=== PATIENT | female | born 1975 | race Caucasian/White ===

== ENCOUNTER 2019-10-18 01:32 | Emergency (ER) | payer OTHER ==
[2019-10-18 02:18] LABS: ABSOLUTE EOSINOPHILS # (AUTO) 0.1 10^3/uL (0.0-0.6); ABSOLUTE MONOCYTES (AUTO) 0.5 10^3/uL (0.1-1.4); ABSOLUTE NEUT (AUTO) 6.9 10^3/uL (1.7-8.2); BASOPHILS % (AUTO) 0.4 % (0-2); EOSINOPHILS % (AUTO) 0.7 % (0-6); HEMATOCRIT 37.9 % (36.0-47.0); HEMOGLOBIN 13.4 g/dL (12.0-15.5); MEAN CORPUSCULAR HEMOGLOBIN 31.4 pg (27.0-33.4); MEAN CORPUSCULAR HGB CONC 35.3 g/dL (32.0-36.0); MEAN CORPUSCULAR VOLUME 89 fl (80-97); MONOCYTES % (AUTO) 5.2 % (3-13); PLATELET COUNT 255 10^3/uL (150-450); RED BLOOD COUNT 4.26 10^6/uL (3.72-5.28); RED CELL DISTRIBUTION WIDTH 13.3 % (11.5-14.0); SEGMENTED NEUTROPHILS % (AUTO) 72.7 % (42-78); TOTAL CELLS COUNTED % (AUTO) 100 %; WHITE BLOOD COUNT 9.5 10^3/uL (4.0-10.5)
[2019-10-18 02:35] LABS: ALBUMIN 4.4 g/dL (3.5-5.0); ALKALINE PHOSPHATASE 53 U/L (38-126); ANION GAP 9 (5-19); ASPARTATE AMINO TRANSFERASE 20 U/L (14-36); BILIRUBIN,TOTAL 0.5 mg/dL (0.2-1.3); BLOOD UREA NITROGEN 10 mg/dL (7-20); CALCIUM 9.3 mg/dL (8.4-10.2); CARBON DIOXIDE 24 mmol/L (22-30); CHLORIDE 106 mmol/L (98-107); GLUCOSE 117 mg/dL (75-110); POTASSIUM 3.5 mmol/L (3.6-5.0); TOTAL PROTEIN 7.2 g/dL (6.3-8.2)
[2019-10-18] MEDS ORDERED: LORAZEPAM 1 MG TABLET PO ONE (04:31)
--- NOTE | 2019-10-18 04:51 | ER Document Report ---
ED General - General Chief Complaint: Anxiety Stated Complaint: POSSIBLE ALLERIC REACTION Primary Care Provider: JESS CONNER MD [Primary Care Provider] - Follow up as needed Notes: Patient is a 44-year-old female that comes emergency department for chief complaint of 2 days of symptoms where she feels slightly nauseated, she feels tightness in her chest with a vague shortness of breath, she feels jittery and she feels like she cannot relax. Patient states she feels like she is in a "never-ending state of panic". She denies fever, vomiting, abdominal pain, flank pain, headache. She states that she had stopped her Celexa 20 mg dose that she had been taking, she states that she resumed it about 2 days ago and instead of starting at 10 mg she started at 20 mg. She states she has done this in the past but had started at a lower dose instead of the 20 mg. Last dose was yesterday morning. She denies smoking, alcohol, recreational drugs. Only other reported medical history is ADHD. She denies recent travel, surgery, lower extremity swelling, exposure to sick contacts. She states she recently had a full work-up with her primary care including thyroid panel which was normal. - Related Data Allergies/Adverse Reactions: cefaclor [From [facility]] Allergy (Verified 10/18/19 02:22) Home Medications: celexa 20 mg-restarted on sun Past Medical History - General Information source: Patient - Social History Smoking Status: Never Smoker Drug Abuse: None Lives with: Family Family History: Reviewed & Not Pertinent Patient has homicidal ideation: No Psychiatric Medical History: Reports: Hx Anxiety, Hx Attention Deficit Hype ractivity Disorder - Immunizations Immunizations up to date: Yes Hx Diphtheria, Pertussis, Tetanus Vaccination: Yes Review of Systems - Review of Systems Constitutional: See HPI EENT: No symptoms reported Cardiovascular: See HPI Respiratory: See HPI Gastrointestinal: No symptoms reported Genitourinary: No symptoms reported Female Genitourinary: No symptoms reported Musculoskeletal: No symptoms reported Skin: No symptoms reported Hematologic/Lymphatic: No symptoms reported Neurological/Psychological: See HPI Physical Exam - Vital signs Vitals: Temp Pulse Resp BP Pulse Ox 98.6 F 76 16 130/77 H 99 10/18/19 01:37 10/18/19 01:37 10/18/19 01:37 10/18/19 01:37 10/18/19 01:37 - Notes Notes: GENERAL: Alert, interactive, appears anxious and is jittery but does not appear to be in distress HEAD: Normocephalic, atraumatic. EYES: Pupils equal, round, and reactive to light. Extraocular movements intact. ENT: Oral mucosa moist, tongue midline. Oropharynx unremarkable. Airway patent. NECK: Full range of motion. Supple. Trachea midline. No lymphadenopathy. LUNGS: Clear to auscultation bilaterally, no wheezes, rales, or rhonchi. No respiratory distress. Non-tender chest wall. HEART: Regular rate and rhythm. No murmur ABDOMEN: Soft, non-tender. Non-distended. EXTREMITIES: Moves all 4 extremities spontaneously. No edema, normal radial and dorsalis pedis pulses bilaterally. No cyanosis. BACK: no cervical, thoracic, lumbar midline tenderness. No saddle anesthesia, normal distal neurovascular exam. Moves all extremities in full range of motion. NEUROLOGICAL: Alert and oriented x3. Normal speech. Cranial nerves II through XII grossly intact. Strength 5/5 in all extremities. PSYCH: Speaks anxiously but makes good eye contact, does not appear to be responding to internal stimuli, answers questions appropriately SKIN: Warm, dry, normal turgor. No rashes or lesions noted. Course - Re-evaluation Re-evalutation: Patient appears anxious and speaks anxiously but she is not tachycardic, flushed, febrile, or in distress. Clear lungs, soft abdomen, unremarkable vital signs. Patient is reporting to me that she is anxious and she just wants to make sure that she is okay. She was given Ativan for her symptoms, after this the tightness in her chest did resolve. Symptoms have been going on for over 24 hours. CBC, chemistry unremarkable. D-dimer is not elevated. Troponin is not elevated. EKG unremarkable with no acute findings. Chest x-ray is unremarkable. I reevaluated patient, after Ativan tightness in the chest has resolved. She still reports insomnia and anxiety, she still appears mildly anxious but she does appear significantly improved. Discussed how symptoms can be from patient restarting her medication at a higher dose and they could be medication side effects although I do not suspect serotonin syndrome, ACS, or any acute intrathoracic etiology based on her evaluation and work-up. Heart score is less than 3. Discussed options. Patient is nervous about restarting her Celexa at the lower dose and trending upwards. She was given very small amount of lorazepam to take over the next 2 days to give her time to follow-up with her regular primary care and discuss her medication for anxiety and also for insomnia. Discussed return precautions in detail. Patient states appreciation and agreement. Stable and well-appearing at time of discharge. - Vital Signs Vital signs: Temp Pulse Resp BP Pulse Ox 98.2 F 77 14 122/72 99 10/18/19 06:14 10/18/19 06:14 10/18/19 06:14 10/18/19 06:14 10/18/19 06:14 - Laboratory Result Diagrams: 10/18/19 02:03 10/18/19 02:03 Laboratory results interpreted by me: 10/18/19 02:03 Potassium 3.5 L Glucose 117 H - EKG Interpretation by Me Additional EKG results interpreted by me: EKG shows sinus rhythm with a rate of 71, QTc 426, normal axis. No T wave inversions or ST segment changes in consecutive leads. Discharge - Discharge Clinical Impression: Chest tightness, Nausea, Anxiety Insomnia Qualifiers: Insomnia type: unspecified Qualified Code(s): G47.00 - Insomnia, unspecified Condition: Stable Disposition: HOME, SELF-CARE Instructions: Anxiety ([facility]) Additional Instructions: Your work-up and evaluation are reassuring tonight. No concerning findings are noted. I do suspect you are having either symptoms from the insomnia or medication side effect specifically but no concerning syndrome is noted here tonight. You have been provided with short-term lorazepam to take over the next 1 to 2 days for your symptoms, I recommend that you reduce your dose to 10 mg of the Celexa starting tonight. Call your primary provider for additional management. Return if you worsen including return for severe pain in your chest, difficulty breathing, passing out, spiking fevers, vomiting, or any other concerning or worsening symptoms. Prescriptions: Lorazepam [Ativan 1 mg Tablet] 1 mg PO Q4 PRN #8 tab PRN Reason: Forms: Return to Work Referrals: JESS CONNER MD [Primary Care Provider] - Follow up as needed
--- NOTE | 2019-10-18 05:36 | RADIOLOGY REPORT (SQ) ---
EXAM DESCRIPTION: XR CHEST 1 VIEW COMPLETED DATE/TME: 10/18/2019 04:32 CLINICAL HISTORY: 44 years Female, shortness of breath, chest tightness COMPARISON: None. NUMBER OF VIEWS/TECHNIQUE: 1/AP FINDINGS: Adequate lung volume, clear parenchyma, normal cardiac silhouette, and intact bony thorax. IMPRESSION: No acute cardiopulmonary findings.
[2019-10-18 06:16] VITALS: BP 122/72
--- NOTE | 2019-10-18 09:16 | EKG REPORT ---
SEVERITY:- NORMAL ECG - SINUS RHYTHM : Confirmed by: Meg Sales 18-Oct-2019 09:15:39
== END 2019-10-18 06:16 | disposition home or self-care (01) ==
LOC: ER 01:32
DX: F41.9 Anxiety disorder, unspecified (principal); G47.00 Insomnia, unspecified; R07.89 Other chest pain; R11.0 Nausea; R06.02 Shortness of breath; Z88.1 Allergy status to other antibiotic agents; R79.89 Other specified abnormal findings of blood chemistry
CPT/HCPCS: 36415; 71045; 80053; 84484; 85025; 85379; 93005; 93010; 99284